=== PATIENT | female | born 1985 | race African-American/Black ===

== ENCOUNTER 2018-12-22 23:03 | Emergency (ER) | payer OTHER ==
[~2018-12-22] VITALS: Ht 160 cm; Wt 81.7 kg
[~2018-12-22 23:03] MED LIST: ALDACTONE; ASPIRIN325; BACTROBAN NASAL1 GM TOP; CARISOPRODOL 3350 MG PO; CIPROFLOXACIN500 M1 PO; DOXYCYCLINE 10100 MG PO; FLEXERIL PO; HYDROCHLOROTHIA25 M2 GT; HYDROCODONE-AP1 EAC6 PO; LISINOPRIL10 MG PO; LOMOTIL TABLET1 EACH PO; MEDROL DOSPAK21 TAB PO; MEDROLDOSEPACK PO; NAPROSYN500 MG PO; NEURONTIN600 MG; NOHOMEMEDICATIONS; NORCO 5-325 TA1 EACH PO; NORFLEX100 MG PO; PEPCID40 MG PO; PRINIVIL10 MG PO; SEROQUEL 25 MG25 MG; TRAMADOL 50 MG50 MG PO; ULTRAM 50MG TAB50 MG PO; VICODIN 5-5001 EACH PO
[2018-12-23 02:21] VITALS: BP 127/80
== END 2018-12-23 02:23 | disposition home or self-care (01) ==
LOC: ER 23:03
DX: S00.12XA Contusion of left eyelid and periocular area, initial encounter (principal); S00.83XA Contusion of other part of head, initial encounter; M79.604 Pain in right leg; M79.7 Fibromyalgia; I10 Essential (primary) hypertension; F17.210 Nicotine dependence, cigarettes, uncomplicated; Y04.0XXA Assault by unarmed brawl or fight, initial encounter; Y93.89 Activity, other specified; Y92.89 Other specified places as the place of occurrence of the external cause; Y99.8 Other external cause status